=== PATIENT | female | born 1995 ===

== ENCOUNTER 2024-10-11 16:01 | Outpatient (REF) | payer OTHER, SELFPAY | END 2024-10-11 16:02 | disposition home or self-care (01) | LOC: LBN 16:01 | PROVIDERS: Visit Provider Nurse Practitioner Family | DX: J02.9 Acute pharyngitis, unspecified (principal) | CPT/HCPCS: 87070 ==

== ENCOUNTER 2024-10-18 15:10 | Outpatient (REF) | payer OTHER, SELFPAY ==
[2024-10-18 22:33] LABS: Anion Gap 9.2 mmol/L (3-11); BUN 12 mg/dL (7-18); CO2 24.8 mmol/L (21.0-32.0); Calcium 9.7 mg/dL (8.5-10.1); Calculated LDL 155 mg/dL (<100); Chloride 101 mmol/L (98-107); Cholesterol 249 mg/dL (<200); Glucose 112 mg/dL (74-106); HDL Cholesterol 64 mg/dL (>or=50); Potassium 4.1 mmol/L (3.5-5.1); Sodium 135 mmol/L (136-145); Triglyceride 152 mg/dL (<150)
== END 2024-10-18 15:11 | disposition home or self-care (01) ==
LOC: NCHCN 15:10
PROVIDERS: Visit Provider Nurse Practitioner Family
DX: L70.0 Acne vulgaris (principal); Z13.220 Encounter for screening for lipoid disorders
CPT/HCPCS: 80048; 80061

== ENCOUNTER 2025-01-24 15:51 | Outpatient (REF) | payer OTHER, SELFPAY ==
--- NOTE | 2025-01-24 14:00 | PAPFT_PTH ---
PATIENT: Hilary Ken LOC: [facility]#:[id number] AGE/SX: 29/F ROOM: RE01/24/[address]: Elba Workman : 1995 BED: DIS: 01/24/2025 SPEC #: [id number] RECD: 01/25/25 17:50 STATUS: DRAGAN RESteve #: [id number] DIAZ: 01/24/25 14:[address]: Elba Workman DEPT: [facility] Cytology RECD BY: Irina Trujillo ENTERED: 01/25/25 17:50 SP TYPE: PAPFT KATHY DR: Unknown,Unknown Tissues: 1 - CX/ENDOCX FOR PAP SMEARS Procedures: PAP THIN PREP/[facility] Screening HPV DNA PROBE Comments: [id number] (HPV 16 & 18/45)
== END 2025-01-24 15:52 | disposition home or self-care (01) ==
LOC: NCHCN 15:51
PROVIDERS: Visit Provider Nurse Practitioner Family
DX: Z11.51 Encounter for screening for human papillomavirus (HPV) (principal); Z01.419 Encounter for gynecological examination (general) (routine) without abnormal findings; Z00.00 Encounter for general adult medical examination without abnormal findings
CPT/HCPCS: 88142; 87624